=== PATIENT | female | born 1965 | race Caucasian/White ===

== ENCOUNTER → 2016-08-01 | Outpatient (CLI) | payer OTHER ==
--- NOTE | 2016-08-01 11:25 | MM ---
Reason for exam: additional evaluation requested from prior study. Last mammogram was performed 1 year ago. History: Family history of breast cancer in aunt at age 70. Physical Findings: Nurse did not find any significant physical abnormalities on exam. MG 3D Diag Mammo W/Cad DIANA Bilateral CC and MLO view(s) were taken. Prior study comparison: July 18, 2015, left breast MG work up mamm w CAD LT. July 06, 2015, bilateral MG 3d screening mammo w/cad. The breast tissue is heterogeneously dense. This may lower the sensitivity of mammography. There is no discrete abnormality including area of concern. No significant new findings when compared with previous films. These results were verbally communicated with the patient and result sheet given to the patient on 08/01/16. ASSESSMENT: Benign, BI-RAD 2 RECOMMENDATION: Routine screening mammogram of both breasts in 1 year.
--- NOTE | 2016-08-01 11:26 | USB ---
Reason for exam: additional evaluation requested from prior study. History: Family history of breast cancer in aunt at age 70. US Breast LT Left breast ultrasound includes all four quadrants, the retroareolar region and axilla. Finding demonstrates no cystic or solid lesion seen. These results were verbally communicated with the patient and result sheet given to the patient on 08/01/16. ASSESSMENT: Negative, BI-RAD 1 RECOMMENDATION: Routine screening mammogram of both breasts in 1 year.
== END | disposition home or self-care (01) ==
LOC: RADMAMWWP 09:17
PROVIDERS: ATTEND Family Medicine
DX: R92.8 Other abnormal and inconclusive findings on diagnostic imaging of breast (principal)
CPT/HCPCS: 76641; G0204; G0279

== ENCOUNTER → 2017-12-17 | Outpatient (CLI) | payer OTHER ==
--- NOTE | 2017-12-18 11:07 | MM ---
Reason for exam: screening (asymptomatic). Last mammogram was performed 1 year and 4 months ago. History: Patient is postmenopausal. Family history of breast cancer in aunt at age 70. Physical Findings: A clinical breast exam by your physician is recommended on an annual basis and results should be correlated with mammographic findings. MG 3D Screening Mammo W/Cad Bilateral CC and MLO view(s) were taken. Prior study comparison: August 01, 2016, bilateral MG 3d diag mammo w/cad DIANA. July 18, 2015, left breast MG work up mamm w CAD LT. The breast tissue is heterogeneously dense. This may lower the sensitivity of mammography. Stable benign calcifications. Nodule upper outer right breast anterior third position. This finding is changed when compared with previous exams. ASSESSMENT: Incomplete: need additional imaging evaluation, BI-RAD 0 RECOMMENDATION: Special view mammogram and ultrasound of the right breast. [facility] will attempt to contact patient to return for supplemental views and ultrasound.
== END | disposition home or self-care (01) ==
LOC: RADMAMWWP 14:50
PROVIDERS: ATTEND Family Medicine
DX: Z12.31 Encounter for screening mammogram for malignant neoplasm of breast (principal)
CPT/HCPCS: 77063; 77067

== ENCOUNTER → 2017-12-31 | Outpatient (CLI) | payer OTHER ==
--- NOTE | 2017-12-31 10:15 | MM ---
Reason for exam: additional evaluation requested from abnormal screening. Last mammogram was performed less than 1 month ago. History: Family history of breast cancer in aunt at age 70. Physical Findings: Nurse did not find any significant physical abnormalities on exam. MG 3D Work Up W/Cad RT Spot compression CC, spot compression MLO, and ML view(s) were taken of the right breast. Prior study comparison: December 17, 2017, bilateral MG 3d screening mammo w/cad. August 01, 2016, bilateral MG 3d diag mammo w/cad DIANA. The breast tissue is heterogeneously dense. This may lower the sensitivity of mammography. There is no discrete abnormality at previous nodule on tomosynthesis compression. These results were verbally communicated with the patient and result sheet given to the patient on 12/31/17. ASSESSMENT: Probably benign, BI-RAD 3 RECOMMENDATION: Follow-up diagnostic mammogram of the right breast in 6 months.
== END | disposition home or self-care (01) ==
LOC: RADMAMWWP 09:28
PROVIDERS: ATTEND Family Medicine
DX: R92.8 Other abnormal and inconclusive findings on diagnostic imaging of breast (principal)
CPT/HCPCS: 77061; 77065

== ENCOUNTER 2019-10-27 08:28 | Day surgery (SDC) | payer OTHER ==
[2019-10-25 08:50] VITALS: BMI 31.2
[~2019-10-27 08:28] MED LIST: LACTATED RINGERS 1,000 ML IV SCH; LIDOCAINE 1% (10MG/ML) FOR IV START INTRADERMA PRN
[2019-10-27 09:01] VITALS: TEMP 97.8
[2019-10-27] MEDS ORDERED: LACTATED RINGERS 1,000 ML IV ONE (09:02)
[2019-10-27] MEDS ORDERED: ONDANSETRON 4 MG/2 ML VIAL ONE (09:08)
[2019-10-27] MEDS ORDERED: ONDANSETRON 4 MG/2 ML VIAL IVP ONE (09:09)
[2019-10-27] MEDS ORDERED: PROPOFOL 10 MG/ML 20 ML VIAL IV ONE (09:53)
[2019-10-27] MEDS ORDERED: LIDOCAINE 1% INJ 10MG/ML (20 ML MDV) ONE (09:53)
--- NOTE | 2019-10-27 10:00 | P.GSHP ---
History of Present Illness H&P Date: 10/27/19 Chief Complaint: Screening colonoscopy This a 53-year-old female who presents today for screening colonoscopy patient denies a significant GI complaints Past Medical History Past Medical History: Thyroid Disorder Additional Past Medical History / Comment(s): HX DETACHED RT RETINA History of Any Multi-Drug Resistant Organisms: None Reported Past Surgical History: Section Additional Past Surgical History / Comment(s): C-SEC X 3. COLONOSCOPY. REPAIR OF DETACHED RT RETINA Past Anesthesia/Blood Transfusion Reactions: Postoperative Nausea & Vomiting (PONV) Smoking Status: Former smoker - Past Family History Mother Family Medical History: Cancer Medications and Allergies Home Medications Medication Instructions Recorded Confirmed Type ALPRAZolam [Xanax] 0.5 mg PO HS PRN 10/25/19 10/25/19 History DULoxetine HCL [Cymbalta] 60 mg PO HS 10/25/19 10/25/19 History Levothyroxine Sodium [Synthroid] 50 mcg PO DAILY 10/25/19 10/25/19 History Potassium Chloride 10 meq PO DAILY 10/25/19 10/25/19 History Thyroid,Pork [Safety Fire Boss Thyroid] 90 mg PO DAILY 10/25/19 10/25/19 History Allergies Allergy/AdvReac Type Severity Reaction Status Date / Time codeine Allergy Nausea & Verified 10/25/19 08:44 Vomiting & Diarrhea Surgical - Exam Vital Signs Temp Pulse Resp BP Pulse Ox 97.8 F 92 18 120/63 98 10/27/19 09:00 10/27/19 09:00 10/27/19 09:00 10/27/19 09:00 10/27/19 09:00 - General well developed, well nourished, no distress - Eyes PERRL - ENT normal pinna - Neck no masses - Respiratory normal expansion - Cardiovascular Rhythm: regular - Abdomen Abdomen: soft, non tender Assessment and Plan Assessment: We'll perform screening colonoscopy.
--- NOTE | 2019-10-27 10:14 | P.OP ---
Date of Procedure: 10/27/19 Preoperative Diagnosis: Screening colonoscopy Postoperative Diagnosis: Internal and external hemorrhoids Procedure(s) Performed: Colonoscopy Anesthesia: MAC Surgeon: Mo Gallardo Pathology: none sent Condition: stable Disposition: PACU Description of Procedure: The patient's placed on the endoscopy table in the lateral position. She received IV sedation. Digital rectal exam performed which revealed internal and external hemorrhoids. The flexible colonoscope was then placed patient anus passed throughout the entire colon. The ileocecal valve visualized. The cecum, ascending and transverse colon appeared normal. Descending and sigmoid colon appeared normal. Scope was then brought back into the rectum and this was normal. The patient and internal hemorrhoids were noted.
[2019-10-27 10:23] VITALS: RESP 16
[2019-10-27 10:32] VITALS: BP 109/69; PULSE 76
== END 2019-10-27 11:20 | disposition home or self-care (01) ==
LOC: ORWHC2ENDO 08:28
PROVIDERS: ATTEND Surgery
DX: Z12.11 Encounter for screening for malignant neoplasm of colon (principal); K64.8 Other hemorrhoids; K64.4 Residual hemorrhoidal skin tags; E07.9 Disorder of thyroid, unspecified; K08.89 Other specified disorders of teeth and supporting structures; F41.9 Anxiety disorder, unspecified; Z86.69 Personal history of other diseases of the nervous system and sense organs; Z98.890 Other specified postprocedural states; Z91.89 Other specified personal risk factors, not elsewhere classified; Z87.891 Personal history of nicotine dependence; Z79.899 Other long term (current) drug therapy; Z79.890 Hormone replacement therapy; Z88.5 Allergy status to narcotic agent
CPT/HCPCS: J2405; J2001; J2704; G0121

== ENCOUNTER 2020-06-02 21:27 | Observation (INO) | payer OTHER ==
--- NOTE | 2020-06-02 22:01 | XR ---
EXAMINATION TYPE: XR chest 2V DATE OF EXAM: 06/02/2020 COMPARISON: NONE HISTORY: Chest pain TECHNIQUE: 2 views FINDINGS: Heart and mediastinum are normal. Lungs are clear. Diaphragm is normal. Bony thorax appears normal. IMPRESSION: Normal chest.
[2020-06-02] MEDS ORDERED: SODIUM CHLORIDE 0.9% 1,000 ML IV STA (22:31)
[2020-06-02 23:05] LABS: Basophils % (A) 1 %; Eosinophils # (A) 0.3 k/uL (0-0.7); Eosinophils % (A) 6 %; HCT 38.4 % (34.0-46.0); HGB 12.9 gm/dL (11.4-16.0); Lymphocytes # (A) 1.6 k/uL (1.0-4.8); Lymphocytes % (A) 29 %; MCH 29.7 pg (25.0-35.0); MCHC 33.6 g/dL (31.0-37.0); MCV 88.4 fL (80.0-100.0); Mean Platelet Volume 6.9; Monocytes # (A) 0.4 k/uL (0-1.0); Monocytes % (A) 7 %; Neutrophils # (A) 3.2 k/uL (1.3-7.7); Neutrophils % (A) 56 %; Platelet Count 269 k/uL (150-450); RBC 4.34 m/uL (3.80-5.40); RDW 13.8 % (11.5-15.5); WBC 5.6 k/uL (3.8-10.6)
[2020-06-02 23:15] LABS: ALT 17 U/L (4-34); AST 25 U/L (14-36); African American GFR (CKD) >90 (>60 ml/min/1.73 sqM); Albumin 3.9 g/dL (3.5-5.0); Alkaline Phosphatase 92 U/L (38-126); Anion Gap 8 mmol/L; Blood Urea Nitrogen 15 mg/dL (7-17); Calcium 9.5 mg/dL (8.4-10.2); Carbon Dioxide 23 mmol/L (22-30); Chloride 106 mmol/L (98-107); Glucose 109 mg/dL (74-99); Magnesium 1.9 mg/dL (1.6-2.3); Non-African American GFR(CKD) >90 (>60 ml/min/1.73 sqM); Potassium 3.9 mmol/L (3.5-5.1); Sodium 137 mmol/L (137-145); Total Bilirubin 0.2 mg/dL (0.2-1.3); Total Protein 6.9 g/dL (6.3-8.2)
[2020-06-02 23:19] LABS: INR 0.9 (<1.2)
--- NOTE | 2020-06-02 23:20 | ED ---
Chest Pain HPI - General Chief Complaint: Arrhythmia/Palpitations Stated Complaint: SOB Time Seen by Provider: 06/02/20 21:40 Source: patient, RN notes reviewed, old records reviewed Mode of arrival: ambulatory Limitations: no limitations - History of Present Illness Initial Comments: This is a 54-year-old female DF for evaluation patient has palpitations and heaviness on her chest. History of smoking. No high cholesterol no diabetes no high blood pressure. Recently had friend who underwent heart surgery which makes the patient very concerned. Patient states she is having is again left- sided chest and reiterates that she has had a significant amount of shortness breath with any kind of exertion, pain continues here in the ER no shortness of breath no sweating. No travel history no significant sick contacts or cough or congestion MD Complaint: chest pain -: days(s) Onset: during exertion Pain Location: substernal, left chest Pain Radiation: none Severity: moderate Severity scale (1-10): 4 Quality: heaviness Consistency: intermittent Improves With: rest Worsens With: exertion Anginal Symptoms: dyspnea Other Symptoms: palpitations Treatments Prior to Arrival: none - Related Data Home Medications Medication Instructions Recorded Confirmed ALPRAZolam [Xanax] 0.5 mg PO HS PRN 10/25/19 10/25/19 DULoxetine HCL [Cymbalta] 60 mg PO HS 10/25/19 10/25/19 Levothyroxine Sodium [Synthroid] 50 mcg PO DAILY 10/25/19 10/25/19 Potassium Chloride 10 meq PO DAILY 10/25/19 10/25/19 Thyroid,Pork [Body Man Thyroid] 90 mg PO DAILY 10/25/19 10/25/19 Allergies Allergy/AdvReac Type Severity Reaction Status Date / Time codeine Allergy only Verified 06/02/20 21:36 family allergy Review of Systems ROS Statement: Those systems with pertinent positive or pertinent negative responses have been documented in the HPI. ROS Other: All systems not noted in ROS Statement are negative. EKG Findings - EKG Comments: EKG Findings:: EKG is sinus rhythm 89, AL 148 QRS 86 QTc 452 Past Medical History Past Medical History: Thyroid Disorder Additional Past Medical History / Comment(s): HX DETACHED RT RETINA, neuropathy, hypothyroid, History of Any Multi-Drug Resistant Organisms: None Reported Past Surgical History: Section Additional Past Surgical History / Comment(s): C-SEC X 3. REPAIR OF DETACHED RT RETINA, Past Anesthesia/Blood Transfusion Reactions: Postoperative Nausea & Vomiting (PONV) Past Psychological History: Anxiety Smoking Status: Former smoker Past Alcohol Use History: None Reported Past Drug Use History: None Reported - Past Family History Mother Family Medical History: Cancer General Exam Limitations: no limitations General appearance: alert, in no apparent distress Head exam: Present: atraumatic, normocephalic, normal inspection Eye exam: Present: normal appearance, PERRL, EOMI. Absent: scleral icterus, conjunctival injection, periorbital swelling ENT exam: Present: normal exam, mucous membranes moist Neck exam: Present: normal inspection. Absent: tenderness, meningismus, lymphadenopathy Respiratory exam: Present: normal lung sounds bilaterally. Absent: respiratory distress, wheezes, rales, rhonchi, stridor Cardiovascular Exam: Present: normal rhythm, tachycardia, normal heart sounds. Absent: systolic murmur, diastolic murmur, rubs, gallop, clicks GI/Abdominal exam: Present: soft, normal bowel sounds. Absent: distended, tenderness, guarding, rebound, rigid Extremities exam: Present: normal inspection, full ROM, normal capillary refill. Absent: tenderness, pedal edema, joint swelling, calf tenderness Back exam: Present: normal inspection Neurological exam: Present: alert, oriented X3, CN II-XII intact Psychiatric exam: Present: normal affect, normal mood Skin exam: Present: warm, dry, intact, normal color. Absent: rash Course Vital Signs 06/02/20 21:34 Temperature 98.3 F Pulse Rate 103 H Respiratory 18 Rate Blood Pressure 129/66 O2 Sat by Pulse 97 Oximetry - Reevaluation(s) Reevaluation #1: 06/03/20 02:32 Medical record is reviewed Reevaluation #2: 06/03/20 02:32 Patient is still with chest pain here in the ER Reevaluation #3: 06/03/20 02:32 Patient informed results questions answered Chest Pain MDM - MDM 54 female DF for evaluation patient comes in for ruling out acute coronary syndrome. Patient is having chest pain and shortness of breath for quite some time about 1-2 weeks. Especially with exertion up and down stairs. Chest x-ray CT chest negative for PE. Patient will be admitted for cardiology to evaluate Critical Care Time Critical Care Time: Yes Total Critical Care Time: 31 Disposition Clinical Impression: Tachycardia, Palpitations, Chest pain Disposition: ADMITTED IP TO THIS [facility] Condition: Undetermined Is patient prescribed a controlled substance at d/c from ED?: No
[2020-06-02 23:50] LABS: D-Dimer 0.67 mg/L FEU (<0.60)
[2020-06-02] MEDS ORDERED: ASPIRIN 81 MG PO STA (23:51)
[2020-06-02] MEDS ORDERED: NITROGLYCERIN SL TABS 0.4 MG TAB SUBLINGUAL PRN (23:51)
--- NOTE | 2020-06-03 01:56 | CT ---
EXAM: CT Angiography Chest With Intravenous Contrast CLINICAL HISTORY: ITS.REASON CT Reason: PE. SOB, elevated dimer TECHNIQUE: Axial computed tomographic angiography images of the chest with intravenous contrast. CTDI is 16.77 mGy and DLP is 395.7 mGy-cm. This CT exam was performed using one or more of the following dose reduction techniques: automated exposure control, adjustment of the mA and/or kV according to patient size, and/or use of iterative reconstruction technique. MIP reconstructed images were created and reviewed. COMPARISON: Prior chest x-ray 06/02/2020 FINDINGS: Pulmonary arteries: Unremarkable. No pulmonary embolism. Aorta: No acute findings. No thoracic aortic aneurysm. Lungs: Minimal basilar dependent atelectasis. No mass. Pleural space: Unremarkable. No significant effusion. No pneumothorax. Heart: Unremarkable. No cardiomegaly. No significant pericardial effusion. No evidence of RV dysfunction. Mediastinum: Moderate hiatal hernia. Bones/joints: Degenerative changes of the thoracic spine. Sclerosis L- 1 vertebral body, likely degenerative changes. No acute fracture. No dislocation. Soft tissues: Unremarkable. Lymph nodes: Unremarkable. No enlarged lymph nodes. IMPRESSION: 1. No evidence of pulmonary embolism or other acute abnormality. 2. Moderate hiatal hernia.
[2020-06-03 02:23] LABS: T4, Free (Free Thyroxine) 0.99 ng/dL (0.78-2.19)
[2020-06-03 05:05] VITALS: BP 116/77; RESP 16; TEMP 97.6
[2020-06-03 06:12] LABS: Cholesterol 224 mg/dL (<200); HDL Cholesterol 56 mg/dL (40-60); LDL Cholesterol,Calculated 149 mg/dL (0-99); Triglycerides 94 mg/dL (<150)
[2020-06-03] MEDS ORDERED: ASPIRIN 325 MG TAB PO SCH (09:00)
[2020-06-03 10:47] VITALS: PULSE 79
--- NOTE | 2020-06-03 14:56 | P.CRDCN ---
History of Present Illness Consult date: 06/03/20 History of present illness: HISTORY OF PRESENT ILLNESS: This is a 54-year-old female with a past medical history significant for hypothyroidism and former nicotine dependence. Patient does not follow with a mining engineering technologist. We have been asked to see the patient in consultation for chest pain. Patient examined at the bedside. Patient reports she was placed on Elavil about one year ago. She reports gaining about 40 pounds since that time. She reports shortness of breath with exertion over the last few months. She is unsure if her weight gain is the sole contributor to her shortness of breath. She denies any shortness of breath at rest. She reports yesterday while driving she began having very mild left-sided chest pressure that progressed throughout the day. She denied any nausea or vomiting. Denied dizziness or lightheadedness. Denied any radiation of the pain. The pain was not worse with deep inspiration or with movement. Patient reports she started googling her symptoms and was concerned she was having a heart attack so she came to the emergency room for further evaluation. The patient states her pain went away around midnight and she has had not had any further episodes of chest pressure since then. Patient denies a family history of premature coronary artery disease. Patient is a former cigarette smoker and quit 3 years ago. She reports smoking 3-4 cigarettes a day at that time. EKG reveals sinus mechanism with no signs of acute ischemia Chest xray negative for acute process Chest CTA: Negative for pulmonary embolism. Moderate hiatal hernia Laboratory data: WBC 5.6. Hemoglobin 12.9. Platelet count 269. D-dimer 0.67. Sodium 137. Potassium 3.9. BUN 15. Creatinine 0.65. Magnesium 1.9. Troponin negative 3. TSH 0.170. Free T4 0.99. LDL 149. Current home cardiac medications include none. REVIEW OF SYSTEMS: At the time of my exam: CONSTITUTIONAL: Denies fever or chills. HEENT: Denies blurred vision, vision changes, or eye pain. Denies hemoptysis CARDIOVASCULAR: Denies chest pain. Denies orthopnea. Denies PND. Denies palpitations RESPIRATORY: Denies shortness of breath. GASTROINTESTINAL: Denies abdominal pain. Denies nausea or vomiting. HEMATOLOGIC: Denies bleeding disorders. GENITOURINARY: Denies any blood in urine. SKIN: Denies pruitis. Denies rash. PHYSICAL EXAM: VITAL SIGNS: Reviewed. GENERAL: Well-developed in no acute distress. HEENT: Head is normocephalic. Pupils are equal, round. Sclerae anicteric. Mucous membranes of the mouth are moist. Neck supple. No JVD or thyromegaly LUNGS: Respirations even and unlabored. Lungs essentially clear to auscultation bilaterally. HEART: Regular rate and rhythm. S1 and S2 heard. ABDOMEN: Soft. Nondistended. Nontender. EXTREMITIES: Normal range of motion. No clubbing or cyanosis. Peripheral pulses intact. No lower extremity edema NEUROLOGIC: Awake and alert. Oriented x 3. ASSESSMENT: Chest pain, troponins negative 3 Hypothyroidism Hyperlipidemia, LDL 149 Former nicotine dependence PLAN: An acute coronary event has been ruled out Begin Lipitor 20 mg daily. Recommend lifestyle modifications as well Obtain 2-D echo to assess cardiac structure and function Patient anxious to be discharged home today. She may be discharged home from a cardiac perspective and follow up outpatient with Dr. Gomes for outpatient stress testing. Nurse practitioner note has been reviewed by physician. Signing provider agrees with the documented findings, assessment, and plan of care. Past Medical History Past Medical History: Thyroid Disorder Additional Past Medical History / Comment(s): HX DETACHED RT RETINA, neuropathy, hypothyroid, History of Any Multi-Drug Resistant Organisms: None Reported Past Surgical History: Section Additional Past Surgical History / Comment(s): C-SEC X 3. REPAIR OF DETACHED RT RETINA, Past Anesthesia/Blood Transfusion Reactions: Postoperative Nausea & Vomiting (PONV) Past Psychological History: Anxiety Smoking Status: Former smoker Past Alcohol Use History: None Reported Additional Past Alcohol Use History / Comment(s): QUIT SMOKING 2017 Past Drug Use History: None Reported - Past Family History Mother Family Medical History: Cancer Medications and Allergies Home Medications Medication Instructions Recorded Confirmed Type Levothyroxine Sodium [Synthroid] 50 mcg PO DAILY 10/25/19 06/03/20 History Potassium Chloride 10 meq PO DAILY 10/25/19 06/03/20 History Thyroid,Pork [Tube Mounter Thyroid] 90 mg PO DAILY 10/25/19 06/03/20 History Amitriptyline HCl [Elavil] 20 mg PO HS 06/03/20 06/03/20 History Atorvastatin [Lipitor] 20 mg PO HS #30 tab 06/03/20 Rx Cholecalciferol [Vitamin D3 (25 25 mcg PO DAILY 06/03/20 06/03/20 History Mcg = 1000 Iu)] Elderberry Fruit and Flower [Black 1 cap PO DAILY 06/03/20 06/03/20 History Elderberry 575 mg Cap] Magnesium 200 mg PO DAILY 06/03/20 06/03/20 History Rizatriptan Benzoate [Rizatriptan] 10 mg PO DAILY PRN 06/03/20 06/03/20 History Zinc 50 mg PO DAILY 06/03/20 06/03/20 History Allergies Allergy/AdvReac Type Severity Reaction Status Date / Time codeine Allergy only Verified 06/03/20 10:06 family allergy Physical Exam Vitals: Vital Signs Temp Pulse Pulse Resp BP BP Pulse Ox 06/03/20 14:00 79 06/03/20 08:00 79 16 06/03/20 05:05 97.6 F 85 16 116/77 97 06/03/20 03:02 97.6 F 85 16 116/77 97 06/02/20 21:34 98.3 F 103 H 18 129/66 97 Intake and Output 06/02/20 06/03/20 06/03/20 22:59 06:59 14:59 Other: # Voids 0 2 Weight 77.111 kg 78.5 kg Results 06/02/20 22:48 06/02/20 22:48 Cardiac Enzymes 06/02/20 06/02/20 06/03/20 Range/Units 22:48 22:48 02:19 AST 25 (14-36) U/L Troponin I <0.012 <0.012 (0.000-0.034) ng/mL 06/03/20 Range/Units 04:25 AST (14-36) U/L Troponin I <0.012 (0.000-0.034) ng/mL Coagulation 06/02/20 Range/Units 22:48 PT 10.0 (9.0-12.0) sec APTT 23.0 (22.0-30.0) sec Lipids 06/03/20 Range/Units 04:25 Triglycerides 94 (<150) mg/dL Cholesterol 224 H (<200) mg/dL HDL Cholesterol 56 (40-60) mg/dL CBC 06/02/20 Range/Units 22:48 WBC 5.6 (3.8-10.6) k/uL RBC 4.34 (3.80-5.40) m/uL Hgb 12.9 (11.4-16.0) gm/dL Hct 38.4 (34.0-46.0) % Plt Count 269 (150-450) k/uL Comprehensive Metabolic Panel 06/02/20 Range/Units 22:48 Sodium 137 (137-145) mmol/L Potassium 3.9 (3.5-5.1) mmol/L Chloride 106 (98-107) mmol/L Carbon Dioxide 23 (22-30) mmol/L BUN 15 (7-17) mg/dL Creatinine 0.65 (0.52-1.04) mg/dL Glucose 109 H (74-99) mg/dL Calcium 9.5 (8.4-10.2) mg/dL AST 25 (14-36) U/L ALT 17 (4-34) U/L Alkaline Phosphatase 92 (38-126) U/L Total Protein 6.9 (6.3-8.2) g/dL Albumin 3.9 (3.5-5.0) g/dL Current Medications Generic Name Dose Route Start Last Admin Trade Name Freq PRN Reason Stop Dose Admin Atorvastatin Calcium 20 mg 06/03/20 21:00 Atorvastatin 20 Mg Tab PO HS TREY Nitroglycerin 0.4 mg 06/02/20 23:51 Nitroglycerin Sl Tabs 0.4 Mg Tab SUBLINGUAL Q5M PRN Chest Pain Intake and Output 06/02/20 06/03/20 06/03/20 22:59 06:59 14:59 Other: # Voids 0 2 Weight 77.111 kg 78.5 kg 06/02/20 22:48 06/02/20 22:48
--- NOTE | 2020-06-03 15:48 | HP ---
HISTORY AND PHYSICAL HISTORY AND PHYSICAL AND DISCHARGE SUMMARY: DATE OF SERVICE: 06/03/2020 I am covering for Dr. Caal. HISTORY OF PRESENT ILLNESS: This is a 54-year-old woman with a past medical history of multiple medical problems including thyroid disorder, history of detached retina, neuropathy, hypothyroidism, being followed by Dr. Sophie Friedman in the outpatient setting, was complaining of chest pain. The pain was felt as a heaviness and some palpitations in the anterior part of the chest and also the left side. The patient also had some shortness of breath. The patient came to [facility] and D-dimer was found to be 0.067. Cholesterol was elevated. PSA was 0.170. The cardiac echo was otherwise negative. CT chest was also done which showed no evidence of pulmonary embolism and moderate hiatal hernia was noted. The patient was monitored closely in the hospital. Cardiology evaluated the patient. Patient is extremely keen on going home at this time. There is no history of fever, rigors, chills. No history of headache, loss of consciousness, seizures. There is no history of any contact with COVID-19. PAST MEDICAL HISTORY: History of hypothyroidism, history anxiety. MEDICATIONS: Medications prior to admission include zinc, thyroid, rizatriptan, potassium, magnesium, levothyroxine, elderberry, Elavil, Lipitor. Doses reviewed. ALLERGIES: CODEINE. FAMILY HISTORY: History of cancer in the family. SOCIAL HISTORY: Occasional alcohol intake. REVIEW OF SYSTEMS: ENT: No diminished vision or hearing. CARDIOVASCULAR: As mentioned earlier. RESPIRATORY: As mentioned earlier. GI: As mentioned earlier. : No dysuria. NERVOUS SYSTEM: No numbness or weakness. ALLERGY/IMMUNOLOGY: No asthma or hayfever. MUSCULOSKELETAL: As mentioned earlier. HEMATOLOGY: No history of anemia. ENDOCRINE: Hypothyroidism. CONSTITUTIONAL: As mentioned earlier. DERMATOLOGY: Negative. RHEUMATOLOGY: Negative. PSYCHIATRY: As mentioned earlier. PHYSICAL EXAMINATION: GENERAL: Patient is alert and oriented times three. VITAL SIGNS: Pulse 79, blood pressure 116/77, respirations 16, temperature 97.6, pulse ox 97% on room air. HEENT: Conjunctivae normal. Oral mucosa moist. NECK: No jugular venous distention. No carotid bruits. No lymph node enlargement. RESPIRATORY: Breath sounds diminished at the bases. No rhonchi, no crackles. HEART: S1 and S2, muffled. ABDOMEN: Soft, no tenderness. No masses palpable. EXTREMITIES: No edema, no swelling. NERVOUS: Higher functions as mentioned earlier. Moves all four limbs. No focal motor or sensory deficits. LYMPHATICS: No lymph nodes palpable in the neck or axillae. SKIN: No rashes. JOINTS: No active deforming arthropathy. LABS: D-dimer is 0.67. Other labs are noted. EKG reviewed. ASSESSMENT: 1. Chest pain for evaluation. Myocardial infarction ruled out. Rule out coronary artery disease. 2. Elevated D-dimer without any evidence of pulmonary embolism. 3. Hiatal hernia. 4. Hyperlipidemia. 5. Hypothyroidism. 6. History of detached retina. 7. History of neuropathy. 9. History of anxiety. 10.Remote history of nicotine dependence. 11.Obesity with body mass of 33.8. 12.FULL CODE. RECOMMENDATIONS AND DISCUSSION: In this 54-year-old woman who presented with multiple medical issues, I would recommend to continue the current management and continue symptomatic treatment. Otherwise I would recommend to resume the home medications. PE has been ruled out. We will await for the Cardiology consultation and then we will arrange a stress test. Patient is extremely keen on going home at this time. I recommend cardiac diet and limited activity until followup. Recommend follow up with Dr. Sophie Friedman and as well as cardiology in the outpatient setting. Lipitor has been initiated for hyperlipidemia. DISCHARGE ADVICE AND MEDICATIONS: Diet is cardiac. Activity is limited until followup. Follow up with Dr. Sophie Friedman in 2-3 days. Follow with Cardiology for possible outpatient stress test. Medications to continue are elderberry, Elavil 20 mg q.h.s., magnesium 200 mg daily, thyroid 90 mcg p.o. daily, KCl 10 mg b.i.d., rizatriptan 10 mg p.o. daily, levothyroxine 50 mcg p.o. daily, vitamin D3 25 mcg p.o. daily, zinc 50 mg p.o. daily, Lipitor 20 mg q.h.s. The patient will be discharged in a stable condition with a guarded prognosis. MMODL / IJN: [id number] / MTDD
[2020-06-03] MEDS ORDERED: ATORVASTATIN 20 MG TAB PO SCH (21:00)
== END 2020-06-03 14:50 | disposition home or self-care (01) ==
LOC: EC 21:27 → 6NMEDSUR 23:51 → 3SCARD 06-03 04:34
PROVIDERS: ADMIT Hospitalist; ATTEND Hospitalist
DX: R07.89 Other chest pain (principal); R00.2 Palpitations; R00.0 Tachycardia, unspecified; R06.02 Shortness of breath; R06.00 Dyspnea, unspecified; R79.89 Other specified abnormal findings of blood chemistry; E78.5 Hyperlipidemia, unspecified; K44.9 Diaphragmatic hernia without obstruction or gangrene; E03.9 Hypothyroidism, unspecified; G62.9 Polyneuropathy, unspecified; F41.9 Anxiety disorder, unspecified; E78.00 Pure hypercholesterolemia, unspecified; Z87.891 Personal history of nicotine dependence; E66.9 Obesity, unspecified; Z68.33 Body mass index [BMI] 33.0-33.9, adult; Z79.890 Hormone replacement therapy; Z79.899 Other long term (current) drug therapy; Z88.5 Allergy status to narcotic agent; Z80.9 Family history of malignant neoplasm, unspecified
CPT/HCPCS: 93005 ×2; 99291; 36415; 85379; 84439; 83880; 80061; 80053; 84443; 83735; 84484 ×2; 85025; 85610; 85730; 71046; 71275; G0378 ×2; Q9967

== ENCOUNTER → 2020-08-16 | Outpatient (CLI) | payer OTHER ==
--- NOTE | 2020-08-16 11:44 | XR ---
Right shoulder HISTORY: Pain 3 views the right shoulder CT chest 06/03/2020 There is overlying artifact. Right lung apex as visualized is normal. Alignment is stable. Bone greige goods examiner alization is maintained. No fracture evident. IMPRESSION: No significant abnormalities evident.
--- NOTE | 2020-08-16 11:46 | XR ---
Local spine HISTORY: Pain Four views of the cervical spine There is multilevel facet arthropathy, spondylosis. Anterolisthesis grade 1 C2-3 and C7-T1, retrolist hesis grade 1 C3-4, C4-5. Cervical vertebral bodies show preserved height and bone mineralization. Lo ss of disc height present at intervertebral levels C3-4, C4-5, C5-6 and C6-7. Prevertebral soft tissu es are normal. IMPRESSION: Degenerative disc disease and facet arthropathy.
== END | disposition home or self-care (01) ==
LOC: RADXRMAIN 11:08
PROVIDERS: ATTEND Family Medicine
DX: M50.30 Other cervical disc degeneration, unspecified cervical region (principal); M47.812 Spondylosis without myelopathy or radiculopathy, cervical region; M25.511 Pain in right shoulder
CPT/HCPCS: 72040

== ENCOUNTER → 2020-08-16 | Outpatient (CLI) | payer OTHER ==
--- NOTE | 2020-08-20 09:19 | MM ---
Reason for exam: screening (asymptomatic). Last mammogram was performed 2 years and 8 months ago. History: Family history of breast cancer in maternal aunt at age 70. Physical Findings: A clinical breast exam by your physician is recommended on an annual basis and results should be correlated with mammographic findings. MG 3D Screening Mammo W/Cad Bilateral CC and MLO view(s) were taken. Prior study comparison: December 31, 2017, right breast MG 3d work up w/cad RT. December 17, 2017, bilateral MG 3d screening mammo w/cad. The breast tissue is heterogeneously dense. This may lower the sensitivity of mammography. Nodule left retroareolar region 1.7cm from nipple. This finding is changed when compared with previous exams. ASSESSMENT: Incomplete: need additional imaging evaluation, BI-RAD 0 RECOMMENDATION: Special view mammogram and ultrasound of the left breast. [facility] will attempt to contact patient to return for supplemental views and ultrasound.
== END | disposition home or self-care (01) ==
LOC: RADMAMWWP 10:31
PROVIDERS: ATTEND Family Medicine
DX: Z12.31 Encounter for screening mammogram for malignant neoplasm of breast (principal); Z80.3 Family history of malignant neoplasm of breast
CPT/HCPCS: 77063; 77067

== ENCOUNTER → 2020-08-30 | Outpatient (CLI) | payer OTHER ==
--- NOTE | 2020-08-30 08:37 | MM ---
Reason for exam: additional evaluation requested from abnormal screening. Last mammogram was performed less than 1 month ago. History: Family history of breast cancer in maternal aunt at age 70. Physical Findings: Nurse did not find any significant physical abnormalities on exam. MG 3D Work Up W/Cad LT Spot compression CC, spot compression MLO, and ML view(s) were taken of the left breast. Prior study comparison: August 16, 2020, bilateral MG 3d screening mammo w/cad. December 31, 2017, right breast MG 3d work up w/cad RT. The breast tissue is heterogeneously dense. This may lower the sensitivity of mammography. Left retroareaolar 6mm, 1.7cm from nipple likely benign asymmetry. Recommend ultrasound of left breast. These results were verbally communicated with the patient and result sheet given to the patient on 08/30/20. ASSESSMENT: Incomplete: need additional imaging evaluation, BI-RAD 0 RECOMMENDATION: Ultrasound of the left breast.
--- NOTE | 2020-08-30 08:39 | USB ---
Reason for exam: additional evaluation requested from abnormal screening. History: Family history of breast cancer in maternal aunt at age 70. US Breast Workup Limited LT Left limited breast ultrasound including focal area of concern, retroareolar and axilla demonstrates no cystic or solid lesion seen. Imaged subareolar and 12 o'clock, 3 o'clock, 6 o'clock and 9 o'clock zone A. These results were verbally communicated with the patient and result sheet given to the patient on 08/30/20. ASSESSMENT: Benign, BI-RAD 2 RECOMMENDATION: Return to routine screening mammogram schedule for both breasts.
== END | disposition home or self-care (01) ==
LOC: RADMAMWWP 07:05
PROVIDERS: ATTEND Family Medicine
DX: R92.2 Inconclusive mammogram (principal); Z80.3 Family history of malignant neoplasm of breast
CPT/HCPCS: 77061; 77065

== ENCOUNTER 2020-10-08 09:28 | Day surgery (SDC) | payer OTHER ==
[2020-10-05 08:54] VITALS: BMI 33.2
--- NOTE | 2020-10-08 08:36 | P.HPOB ---
History of Present Illness H&P Date: 10/08/20 Chief Complaint: Menorrhagia This is a 54-year-old 3 para 3004 that presents for endometrial ablation secondary to heavy menstrual bleeding. Patient states she's been having increasing heaviness with her periods for the last 9 months.. Her last Jelani. Was July 07, and lasted 30 days. Her periods typically occur irregularly. She notes her periods to be very heavy with clots. Patient did have an ultrasound performed which revealed a normal uterus of 9 cm x 5 cm x 5 cm. No fibroids were appreciated. Review of Systems Constitutional: Denies chills, Denies fatigue, Denies fever Ears, nose, mouth and throat: Denies headache Cardiovascular: Denies leg edema Respiratory: Denies dyspnea Gastrointestinal: Denies constipation, Denies diarrhea, Denies nausea, Denies vomiting Genitourinary: Denies Past Medical History Past Medical History: Hyperlipidemia, Osteoarthritis (OA), Thyroid Disorder Additional Past Medical History / Comment(s): HX DETACHED RIGHT RETINA, neuropathy, hypothyroid, chronic generalized pain - ? Fibromyalgia. History of Any Multi-Drug Resistant Organisms: None Reported Past Surgical History: Section Additional Past Surgical History / Comment(s): SECTION X3, REPAIR OF DETACHED RIGHT RETINA. Past Anesthesia/Blood Transfusion Reactions: Motion Sickness, Postoperative Nausea & Vomiting (PONV) Past Psychological History: Anxiety, Depression Smoking Status: Former smoker Past Alcohol Use History: None Reported Additional Past Alcohol Use History / Comment(s): QUIT SMOKING in 2018. Past Drug Use History: None Reported - Past Family History Mother Family Medical History: Cancer Additional Family Medical History / Comment(s): Pancreatic Cancer. Medications and Allergies Home Medications Medication Instructions Recorded Confirmed Type Levothyroxine Sodium [Synthroid] 50 mcg PO QAM 10/25/19 10/05/20 History Potassium Chloride 10 meq PO DAILY 10/25/19 10/05/20 History Thyroid,Pork [Outpatient Psychiatrist Thyroid] 90 mg PO QAM 10/25/19 10/05/20 History Amitriptyline HCl [Elavil] 20 mg PO HS 06/03/20 10/05/20 History Ascorbic Acid [Vitamin C] 1,000 mg PO DAILY 10/05/20 10/05/20 History Atorvastatin [Lipitor] 20 mg PO DAILY 10/05/20 10/05/20 History Cyanocobalamin (Vitamin B-12) 1,000 mcg PO DAILY 10/05/20 10/05/20 History [Vitamin B-12] Ibuprofen 800 mg PO Q8H 10/05/20 10/05/20 History Magnesium 500 mg PO DAILY 10/05/20 10/05/20 History Rizatriptan Benzoate [Rizatriptan] 10 mg PO DIRECTED PRN 10/05/20 10/05/20 History Turmeric Root Extract [Turmeric] 500 mg PO DAILY 10/05/20 10/05/20 History Allergies Allergy/AdvReac Type Severity Reaction Status Date / Time codeine Allergy only Verified 10/05/20 08:22 family allergy Exam Osteopathic Statement: *. No significant issues noted on an osteopathic structural exam other than those noted in the History and Physical/Consult. Targeted physical exam is performed in this date and tattooer a well-nourished well-developed non female in no acute distress, breathing is noted to be nonlabored, heart has a regular rate and rhythm, abdomen is soft and nontender, pelvic exam is deferred today. Assessment and Plan (1) Menometrorrhagia Status: Acute Code(s): N92.1 - EXCESSIVE AND FREQUENT MENSTRUATION WITH IRREGULAR CYCLE SNOMED Code(s): 195611710 Plan: This 54-year-old female presents for hysteroscopy, dilation curettage with endometrial ablation. Patient has a history of heavy menstrual bleeding. Surgeries reviewed with the patient all questions were answered. Risks are reviewed including bowel maternal infection, bleeding, uterine perforation and failure of the procedure. Patient states understanding and wishes to proceed.
[~2020-10-08 09:28] MED LIST changes: +DEXAMETHASONE SOD PHOSPHATE 4 MG/ML 1 ML VIAL IV ONE; +HYDROmorphone 0.5 MG/0.5 ML SYRINGE IVP PRN; -LIDOCAINE 1% (10MG/ML) FOR IV START INTRADERMA PRN; +ONDANSETRON 4 MG/2 ML VIAL IVP ONE; +Pre Op ABX Message 1 EACH MISC MISCELLANE ONE
[2020-10-08] MEDS ORDERED: LIDOCAINE 1% (10MG/ML) FOR IV START INTRADERMA ONE (10:12)
[2020-10-08] MEDS ORDERED: SCOPOLAMINE 1.5MG/72HR PATCH TRANSDERM ONE (10:15)
[2020-10-08] MEDS ORDERED: MIDAZOLAM 2 MG/2 ML VIAL IV ONE (11:49)
[2020-10-08] MEDS ORDERED: MIDAZOLAM 2 MG/2 ML VIAL ONE (13:34)
[2020-10-08] MEDS ORDERED: fentaNYL (PF) 50 MCG/ML 2 ML AMP ONE (13:34)
[2020-10-08] MEDS ORDERED: LIDOCAINE 1% INJ 10MG/ML (20 ML MDV) ONE (13:34)
[2020-10-08] MEDS ORDERED: PROPOFOL 10 MG/ML 20 ML VIAL IV ONE (13:34)
[2020-10-08] MEDS ORDERED: KETOROLAC 15 MG/ML 1 ML VIAL ONE (13:34)
[2020-10-08] MEDS ORDERED: SILVER NITRATE APPLICATOR 1 EACH STICK..EA. TOPICAL ONE (14:05)
[2020-10-08 14:21] VITALS: TEMP 96.6
[2020-10-08 15:16] VITALS: RESP 18
[2020-10-08] MEDS ORDERED: LACTATED RINGERS 1,000 ML IV ONE (15:16)
[2020-10-08 15:47] VITALS: BP 106/73; PULSE 96
--- NOTE | 2020-10-08 17:27 | P.OP ---
Date of Procedure: 10/08/20 Preoperative Diagnosis: Menometorrhagia Postoperative Diagnosis: Same Procedure(s) Performed: Hysteroscopy, dilation and curettage, endometrial ablation with NovaSure Anesthesia: MAC Surgeon: Ursula Rodriguez Estimated Blood Loss (ml): 5 IV fluids (ml): 200 Urine output (ml): 100 Pathology: other (Endometrial curettings) Condition: stable Disposition: PACU Indications for Procedure: Irregular heavy menstrual bleeding Operative Findings: Proliferative endometrial cavity Description of Procedure: Patient was taken back to the operating suite where general anesthesia was obtai pierre without difficulty by the anesthesia department. She was then prepped and draped in the normal sterile fashion in the dorsal lithotomy position. A weighted speculum was placed in the posterior vaginal vault the anterior lip of the cervix is visualized and grasped with a single-tooth tenaculum. Prior to this a red rubber catheter was used to drain the bladder clear yellow urine. The endocervical canal was then dilated. At this time a hysteroscope was placed through the cervix and toward the uterine cavity. The cavity was noted to be intact with a proliferative endometrium. The hysteroscope was then removed. A sharp curettage was then performed until gritty texture was noted. The specimens and sent to pathology for analysis. The NovaSure device was then opened and set to the uterine measurements. The uterus was noted to be 6 cm in length, 2.5 for width, power of 83. Once cavity assessment was passed the cycle was allowed to complete. After the cycle was complete the NovaSure device was removed without difficulty. Some bleeding was noted on the anterior lip of the cervix after removal of the single tooth tenaculum therefore silver nitrate was applied to obtain hemost asis. All instrument removed from the patient's vaginal vault. All counts were noted be correct 2 at the end of the procedure. Patient tolerated procedure well and was taken to the recovery room awake in stable condition.
== END 2020-10-08 16:10 | disposition home or self-care (01) ==
LOC: OR 09:28
PROVIDERS: ATTEND Obstetrics & Gynecology Obstetrics
DX: N92.1 Excessive and frequent menstruation with irregular cycle (principal); M19.90 Unspecified osteoarthritis, unspecified site; E78.5 Hyperlipidemia, unspecified; F41.9 Anxiety disorder, unspecified; F32.9 Major depressive disorder, single episode, unspecified; G62.9 Polyneuropathy, unspecified; E03.9 Hypothyroidism, unspecified; Z87.891 Personal history of nicotine dependence; G89.29 Other chronic pain; Z79.899 Other long term (current) drug therapy; Z88.5 Allergy status to narcotic agent
CPT/HCPCS: 81025; 88305; 58563; J2250; J1100; J2405; J2001; J3010; J1885; J2704

== ENCOUNTER → 2020-11-09 | Outpatient (CLI) | payer OTHER ==
--- NOTE | 2020-11-09 16:44 | ECHOF ---
Referral Reason:R94.31 Abnormal electrocardiogram [ECG] [EKG] MEASUREMENTS -------- HEIGHT: 152.4 cm WEIGHT: 77.1 kg BP: RVIDd: 2.8 cm (< 3.3) IVSd: 1.1 cm (0.6 - 1.1) LVIDd: 4.2 cm (3.9 - 5.3) LVPWd: 1.1 cm (0.6 - 1.1) IVSs: 1.3 cm LVIDs: 2.9 cm LVPWs: 1.4 cm LAESV Index (A-L): 23.01 ml/m Ao Diam: 2.6 cm (2.0 - 3.7) AV Cusp: 1.8 cm (1.5 - 2.6) LA Diam: 3.5 cm (2.7 - 3.8) MV EXCURSION: 15.640 mm (> 18.000) MV EF SLOPE: 122 mm/s (70 - 150) EPSS: 0.5 cm MV E Luis A: 0.71 m/s MV DecT: 132 ms MV A Luis A: 0.64 m/s MV E/A Ratio: 1.12 RAP: 5.00 mmHg RVSP: 26.21 mmHg FINDINGS -------- Sinus rhythm. This was a technically adequate study. The left ventricular size is normal. Left ventricular wall thickness is normal. Overall left vent ricular systolic function is normal with, an EF between 55 - 60 %. The diastolic filling pattern is normal for the age of the patient 6.85. The right ventricle is normal in size. Normal LA size by volume 22+/-6 ml/m2. The right atrial size is normal. Interatrial and interventricular septum intact. The aortic valve is trileaflet and appears structurally normal. There is no evidence of aortic regu rgitation. There is no evidence of aortic stenosis. There is trace mitral regurgitation. Mild tricuspid regurgitation present. There is no evidence of pulmonary hypertension. The right v entricular systolic pressure, as measured by Doppler, is 26.21mmHg. There is no pulmonic regurgitation present. The aortic root size is normal. Normal inferior vena cava with normal inspiratory collapse consistent with estimated right atrial pre ssure of 5 mmHg. There is no pericardial effusion. CONCLUSIONS -------- 1. The left ventricular size is normal. 2. Left ventricular wall thickness is normal. 3. Overall left ventricular systolic function is normal with, an EF between 55 - 60 %. 4. The diastolic filling pattern is normal for the age of the patient 6.85 5. There is trace mitral regurgitation. 6. Mild tricuspid regurgitation present. WELFARE OFFICER: Princess Mcbride RDCS
== END | disposition home or self-care (01) ==
LOC: RADECHMAIN 14:43
PROVIDERS: ATTEND Family Medicine
DX: I07.1 Rheumatic tricuspid insufficiency (principal); R00.0 Tachycardia, unspecified; R94.31 Abnormal electrocardiogram [ECG] [EKG]
CPT/HCPCS: 93306

== ENCOUNTER → 2021-08-30 | Outpatient (CLI) | payer OTHER ==
--- NOTE | 2021-09-02 20:14 | MM ---
Reason for Exam: Screening (asymptomatic). Last mammogram was performed 1 year(s) and 1 month(s) ago. Patient History: Menarche at age 11. First Full-Term at age 22. Postmenopausal. Maternal aunt had breast cancer, age 70. Risk Values: Yara 5 year model risk: 1.1%. NCI Lifetime model risk: 7.1%. Prior Study Comparison: 12/31/2017 Right Diagnostic Mammogram, [facility]. 08/16/2020 Bilateral Screening Mammogram, [facility]. 08/30/2020 Left Diagnostic Mammogram, [facility]. Tissue Density: There are scattered fibroglandular densities. Findings: Analyzed By CAD. No significant change from prior exams. Overall Assessment: Negative, BI-RAD 1 Management: Screening Mammogram of both breasts in 1 year. A clinical breast exam by your physician is recommended on an annual basis and results should be correlated with mammographic findings. Also, the patient should continue monthly self breast exams. Electronically signed and approved by: Bill Abarca M.D. Radiologist
== END | disposition home or self-care (01) ==
LOC: RADMAMWWP 11:07
PROVIDERS: ATTEND Family Medicine
DX: Z12.31 Encounter for screening mammogram for malignant neoplasm of breast (principal); Z80.3 Family history of malignant neoplasm of breast
CPT/HCPCS: 77063; 77067

== ENCOUNTER → 2022-09-18 | Outpatient (CLI) | payer OTHER ==
--- NOTE | 2022-09-19 08:29 | MM ---
Reason for Exam: Screening (asymptomatic). Last screening mammogram was performed 12 month(s) ago. Patient History: Menarche at age 11. First Full-Term at age 22. Postmenopausal. Patient has history of breast feeding. Maternal aunt had breast cancer, age 70. Maternal cousin had breast cancer, age 80. Risk Values: Yara 5 year model risk: 1.2%. NCI Lifetime model risk: 6.9%. Prior Study Comparison: 08/01/2016 Bilateral Diagnostic Mammogram, [facility]. 12/17/2017 Bilateral Screening Mammogram, [facility]. 12/31/2017 Right Diagnostic Mammogram, [facility]. 08/16/2020 Bilateral Screening Mammogram, [facility]. 08/30/2020 Left Diagnostic Mammogram, [facility]. 08/30/2021 Bilateral MG 3D screening mammo w/cad, [facility]. Tissue Density: The breast tissue is heterogeneously dense. This may lower the sensitivity of mammography. Findings: Analyzed By CAD. There is no suspicious group of microcalcifications or new suspicious mass in either breast. Overall Assessment: Benign, BI-RAD 2 Management: Screening Mammogram of both breasts in 1 year. . Patient should continue monthly self-breast exams. A clinical breast exam by your physician is recommended on an annual basis. This exam should not preclude additional follow-up of suspicious palpable abnormalities. Note on Yara scores and lifetime risk: 1. A Yara score greater than 3% is considered moderate risk. If this is the case, consider specialist referral to assess eligibility for a risk reducing agent. 2. If overall lifetime risk for the development of breast cancer is 20% or higher, the patient may qualify for future screening with alternating mammogram and breast MRI. Electronically signed and approved by: Sotero Triplett M.D. Radiologis
== END | disposition home or self-care (01) ==
LOC: RADMAMWWP 09:16
PROVIDERS: ATTEND Family Medicine
DX: Z12.31 Encounter for screening mammogram for malignant neoplasm of breast (principal); Z78.0 Asymptomatic menopausal state; Z80.3 Family history of malignant neoplasm of breast
CPT/HCPCS: 77063; 77067

== ENCOUNTER → 2023-10-09 | Outpatient (CLI) | payer OTHER ==
--- NOTE | 2023-10-09 10:20 | MM ---
Reason for Exam: Clinical finding. Last mammogram was performed 1 year(s) and 1 month(s) ago. Indicated Problems: Nipple abnormality of the left side for 1 Month(s). Patient History: Menarche at age 11. First Full-Term at age 22. Postmenopausal. Patient has history of breast feeding. Maternal aunt had breast cancer, age 70. Maternal cousin had breast cancer, age 80. Risk Values: Yara 5 year model risk: 1.2%. NCI Lifetime model risk: 6.7%. Prior Study Comparison: 06/08/2014 Bilateral Screening Mammogram, [facility]. 07/06/2015 Bilateral Screening Mammogram, [facility]. 07/18/2015 Left Diagnostic Mammogram, [facility]. 07/18/2015 Left Diagnostic Ultrasound, [facility]. 08/01/2016 Bilateral Diagnostic Mammogram, [facility]. 08/01/2016 Left Diagnostic Ultrasound, [facility]. 12/17/2017 Bilateral Screening Mammogram, [facility]. 12/31/2017 Right Diagnostic Mammogram, [facility]. 08/16/2020 Bilateral Screening Mammogram, [facility]. 08/30/2020 Left Diagnostic Mammogram, [facility]. 08/30/2020 Left Diagnostic Ultrasound, [facility]. 08/30/2021 Bilateral MG 3D screening mammo w/cad, [facility]. 09/18/2022 Bilateral MG 3D screening mammo w/cad, [facility]. Tissue Density: There are scattered areas of fibroglandular density. Findings: Analyzed By CAD. The pattern is symmetrical. Scattered benign calcifications are present bilaterally. No suspicious groups of microcalcifications, spiculated or lobular masses, architectural distortion or other secondary signs of malignancy are mammographically apparent. Overall Assessment: Benign, BI-RAD 2 Management: Screening Mammogram of both breasts in 1 year. A negative mammogram report should not preclude additional follow up of suspicious palpable abnormalities. Patient should continue monthly self breast exam. A clinical breast exam by your physician is recommended on an annual basis and results should be correlated with mammographic findings. Note on Yara scores and lifetime risk: 1. A Yara score greater than 3% is considered moderate risk. If this is the case, consider specialist referral to assess eligibility for a risk reducing agent. 2. If overall lifetime risk for the development of breast cancer is 20% or higher, the patient may qualify for future screening with alternating mammogram and breast MRI. Electronically signed and approved by: Kevin Mcwilliams D.O. Radiologis
== END | disposition home or self-care (01) ==
LOC: RADMAMWWP 09:55
PROVIDERS: ATTEND Family Medicine
DX: R92.323 Mammographic fibroglandular density, bilateral breasts (principal); Z78.0 Asymptomatic menopausal state; Z80.3 Family history of malignant neoplasm of breast
CPT/HCPCS: 77062; 77066

== ENCOUNTER → 2024-10-21 | Outpatient (CLI) | payer OTHER ==
--- NOTE | 2024-10-21 08:45 | MM ---
Reason for Exam: Screening (asymptomatic). Last screening mammogram was performed 12 month(s) ago. Patient History: Menarche at age 11. First Full-Term at age 22. Postmenopausal. Patient has history of breast feeding. Maternal aunt had breast cancer, age 70. Maternal cousin had breast cancer, age 80. Risk Values: Yara 5 year model risk: 1.3%. NCI Lifetime model risk: 6.6%. Prior Study Comparison: 08/30/2021 Bilateral MG 3D screening mammo w/cad, [facility]. 09/18/2022 Bilateral MG 3D screening mammo w/cad, [facility]. 10/09/2023 Bilateral MG 3D diag mammo w/cad DIANA, [facility]. Tissue Density: There are scattered areas of fibroglandular density. Findings: Analyzed By CAD. Right breast: There is no suspicious group of microcalcifications or new suspicious mass. Left breast: There is no suspicious group of microcalcifications or new suspicious mass. Overall Assessment: Benign, BI-RAD 2 Management: Screening Mammogram of both breasts in [address] [facility] will attempt to contact patient to return for supplemental views and ultrasound if indicated. Patient should continue monthly self-breast exams. A clinical breast exam by your physician is recommended on an annual basis. This exam should not preclude additional follow-up of suspicious palpable abnormalities. Note on Yara scores and lifetime risk: 1. A Yara score greater than 3% is considered moderate risk. If this is the case, consider specialist referral to assess eligibility for a risk reducing agent. 2. If overall lifetime risk for the development of breast cancer is 20% or higher, the patient may qualify for future screening with alternating mammogram and breast MRI. [facility], , 10/21/2024 8:41 AM. Electronically signed and approved by: Catalino Hewitt DO
== END | disposition home or self-care (01) ==
LOC: RADMAMWWP 07:46
PROVIDERS: ATTEND Family Medicine
DX: Z12.31 Encounter for screening mammogram for malignant neoplasm of breast (principal); R92.323 Mammographic fibroglandular density, bilateral breasts; Z80.3 Family history of malignant neoplasm of breast; Z78.0 Asymptomatic menopausal state
CPT/HCPCS: 77063; 77067